=== PATIENT | male | born 1950 | race Caucasian/White ===

== ENCOUNTER → 2021-03-17 | Outpatient (CLI) | payer MEDICARE, BC ==
[~2021-03-17] MED LIST: ASPI81TA45 PO; ATOR-2 PO; LEVO750T26 PO; LISI-167 PO; METO25TA2 PO; TICA90TA PO
== END | disposition home or self-care (01) ==
LOC: STAR 10:43
PROVIDERS: ATTEND Neurological Surgery
DX: Z20.822 Contact with and (suspected) exposure to COVID-19 (principal)
CPT/HCPCS: U0003; U0005

== ENCOUNTER 2021-03-23 06:53 | Inpatient (IN) | payer MEDICARE, BC ==
[~2021-03-23] VITALS: Ht 182.9 cm; Wt 108.4 kg
[~2021-03-23 06:53] MED LIST changes: +BUPIVACAINE/PF 0.5% ONE; +EPINEPHRINE 1 MG/ML, 1ML ONE; +GENTAMICIN 80 MG/2 ML ONE; +HEPARIN 1,000 UNITS/ML, 30ML ONE; +VANCOMYCIN 1,000 MG ONE
[2021-03-23] MEDS ORDERED: CHLORHEXIDINE 15 ML UDC PO ONE (07:30)
[2021-03-23] MEDS ORDERED: LACTATED RINGERS 1,000 ML IV SCH (07:30)
[2021-03-23] MEDS ORDERED: FENTANYL PF 100 MCG/2ML ONE ×2 (10:23→13:19)
[2021-03-23] MEDS ORDERED: CEFAZOLIN 1,000 MG ONE (10:23)
[2021-03-23] MEDS ORDERED: ONDANSETRON 2MG/ML, 2ML ONE (10:23)
[2021-03-23] MEDS ORDERED: ROCURONIUM 10MG/ML,5ML ONE (10:23)
[2021-03-23] MEDS ORDERED: PROPOFOL 10 MG/ML, 20ML ONE (10:23)
[2021-03-23] MEDS ORDERED: MIDAZOLAM 1 MG/ML, 2ML ONE (10:23)
[2021-03-23] MEDS ORDERED: NEOSTIGMINE 1 MG/ML, 10ML ONE (10:23)
[2021-03-23] MEDS ORDERED: DEXAMETHASONE 4 MG/ML, 1ML ONE (10:23)
[2021-03-23] MEDS ORDERED: GLYCOPYRROLATE 0.2MG/1ML, 5ML ONE (10:23)
[2021-03-23] MEDS ORDERED: SUCCINYLCHOLINE 20 MG/ML, 10ML ONE (10:23)
[2021-03-23] MEDS ORDERED: EPHEDRINE 50 MG/ML, 1ML ONE (10:49)
[2021-03-23] MEDS ORDERED: PROMETHAZINE 25 MG/ML, 1ML IVPush PRN (11:00)
[2021-03-23] MEDS ORDERED: HYDROcodone/APAP 7.5-325MG/15ML UDC PO PRN (11:00)
[2021-03-23] MEDS ORDERED: MEPERIDINE/PF 25MG/0.5ML IVPush PRN (11:00)
[2021-03-23] MEDS ORDERED: ONDANSETRON 2MG/ML, 2ML IVPush PRN ×2 (11:00→13:00)
[2021-03-23] MEDS ORDERED: METHOCARBAMOL 1,000 MG in DEXTROSE 5% 100 ML IV PRN (11:00)
[2021-03-23] MEDS ORDERED: HYDROmorphone 1 MG/ML, 1ML INJ IVPush PRN ×2 (11:00→13:00)
[2021-03-23] MEDS ORDERED: OXYcodone 5 MG/5 ML ORAL.SOL UDC PO PRN (11:00)
[2021-03-23] MEDS ORDERED: METHOCARBAMOL 750 MG TABLET PO PRN (13:00)
[2021-03-23] MEDS ORDERED: SENNA/DOCUSATE TABLET PO PRN (13:00)
[2021-03-23] MEDS ORDERED: OXYcodone/APAP 5/325MG TABLET PO PRN (13:00)
[2021-03-23] MEDS ORDERED: BISACODYL 10 MG SUPP PR PRN (13:00)
[2021-03-23] MEDS ORDERED: PHARMACY MAY ADJ FOR RENAL FX MC PRN (13:00)
[2021-03-23] MEDS ORDERED: MAGNESIUM HYDROXIDE 8%, 30ML UDC PO PRN (13:00)
[2021-03-23] MEDS ORDERED: DIPHENHYDRAMINE 50 MG/ML, 1ML IM PRN (13:00)
[2021-03-23] MEDS ORDERED: METHOCARBAMOL 1,000 MG in DEXTROSE 5% 100 ML IV ONE (13:00)
[2021-03-23] MEDS ORDERED: DIPHENHYDRAMINE 50 MG/ML, 1ML IVPush PRN (13:00)
[2021-03-23] MEDS: FENTANYL PF 100 MCG/2ML IV PRN ×2 (13:21→13:53)
[2021-03-23] MEDS ORDERED: OXYcodone 5 MG/5 ML ORAL.SOL UDC ONE (13:48)
[2021-03-23] MEDS: D5%-0.9% NACL+KCL 20MEQ 1,000 ML IV SCH (18:25)
[2021-03-23] MEDS: CEFAZOLIN PMX 1GM/50ML 50 ML IVPB SCH (18:26)
[2021-03-23 18:45] VITALS: BP 123/85
[2021-03-23] MEDS: SODIUM CHLORIDE FLUSH 10ML SYR IVF SCH (21:00)
[2021-03-23 23:45] VITALS: BP 117/71
[2021-03-24 03:25] VITALS: BP 139/75
[2021-03-24] MEDS: CEFAZOLIN PMX 1GM/50ML 50 ML IVPB SCH ×2 (03:33→18:31)
[2021-03-24 05:11] LABS: BASOPHILS % (AUTO) 0 % (0-1); EOSINOPHILS % (AUTO) 0 % (1-7); LYMPHOCYTES % (AUTO) 4 % (22-44); MEAN CORPUSCULAR HEMOGLOBIN 32.8 pg (27.5-34.5); MEAN CORPUSCULAR HGB CONC 33.6 g/dL (33.2-36.2); MEAN PLATELET VOLUME 10.9 fL (7.4-10.4); MONOCYTES % (AUTO) 5 % (2-9); NEUTROPHILS % (AUTO) 91 % (42-75); PLATELET COUNT 134 x10^3/uL (130-400); RED CELL DISTRIBUTION WIDTH 13.9 % (9.4-14.8)
[2021-03-24 05:23] LABS: ANION GAP 6 mmol/L (5-15); CALCIUM 8.6 mg/dL (8.5-10.1); CHLORIDE 109 mmol/L (98-107); CREATININE 0.99 mg/dL (0.7-1.3)
[2021-03-24] MEDS: D5%-0.9% NACL+KCL 20MEQ 1,000 ML IV SCH ×3 (05:50→19:50)
[2021-03-24] MEDS ORDERED: BUPIVACAINE/PF 0.5% ONE (06:35)
[2021-03-24] MEDS ORDERED: VANCOMYCIN 1,000 MG ONE (06:35)
[2021-03-24] MEDS ORDERED: EPINEPHRINE 1 MG/ML, 1ML ONE (06:36)
[2021-03-24 07:03] VITALS: BP 116/77
[2021-03-24] MEDS ORDERED: GENTAMICIN 80 MG/2 ML ONE (08:00)
[2021-03-24] MEDS: METOPROLOL SUCCINATE 25 MG TAB.ER.24H PO SCH (08:25)
[2021-03-24] MEDS: SODIUM CHLORIDE FLUSH 10ML SYR IVF SCH ×2 (08:26→19:57)
[2021-03-24] MEDS: LISINOPRIL 10 MG TABLET PO SCH (08:26)
[2021-03-24] MEDS ORDERED: CHLORHEXIDINE 15 ML UDC ONE (08:47)
[2021-03-24] MEDS ORDERED: CHLORHEXIDINE 15 ML UDC PO ONE ×2 (09:00)
[2021-03-24] MEDS ORDERED: MIDAZOLAM 1 MG/ML, 2ML ONE (10:15)
[2021-03-24] MEDS ORDERED: FENTANYL PF 250 MCG/5ML ONE ×2 (10:16→11:24)
[2021-03-24] MEDS ORDERED: PROPOFOL 10 MG/ML, 20ML ONE (10:29)
[2021-03-24] MEDS ORDERED: ONDANSETRON 2MG/ML, 2ML ONE (10:29)
[2021-03-24] MEDS ORDERED: ROCURONIUM 10 MG/ML,10ML ONE (10:29)
[2021-03-24] MEDS ORDERED: SUCCINYLCHOLINE 20 MG/ML, 10ML ONE (10:29)
[2021-03-24] MEDS ORDERED: CEFAZOLIN 1,000 MG ONE (10:29)
[2021-03-24] MEDS ORDERED: DEXAMETHASONE 4 MG/ML, 1ML ONE (10:50)
[2021-03-24] MEDS ORDERED: VANCOMYCIN 1,000 MG IM ONE (11:11)
[2021-03-24] MEDS ORDERED: DIPHENHYDRAMINE 50 MG/ML, 1ML IVPush PRN ×2 (13:00)
[2021-03-24] MEDS ORDERED: MIDAZOLAM 1 MG/ML, 2ML IV PRN (13:00)
[2021-03-24] MEDS ORDERED: hydrALAzine 20 MG/ML, 1ML IV PRN (13:00)
[2021-03-24] MEDS ORDERED: ALBUTEROL SULFATE 2.5 MG/3 ML NPPB PRN (13:00)
[2021-03-24] MEDS: LABETALOL 5MG/ML 40ML VIAL IVPush SCH ×2 (13:00→19:07)
[2021-03-24] MEDS ORDERED: DIAZEPAM 5 MG/ML, 2ML IVPush PRN (13:00)
[2021-03-24] MEDS ORDERED: EPHEDRINE 50 MG/ML, 1ML IVPush PRN (13:00)
[2021-03-24] MEDS ORDERED: FENTANYL PF 100 MCG/2ML IV PRN (13:00)
[2021-03-24] MEDS ORDERED: ONDANSETRON 2MG/ML, 2ML IVPush PRN (13:00)
[2021-03-24] MEDS ORDERED: LORazepam 2 MG/ML, 1ML IVPush PRN (13:00)
[2021-03-24] MEDS ORDERED: MEPERIDINE/PF 25MG/0.5ML IVPush PRN (13:00)
[2021-03-24] MEDS ORDERED: HYDROmorphone 1 MG/ML, 1ML INJ IVPush PRN (13:00)
[2021-03-24] MEDS ORDERED: PROMETHAZINE 12.5 MG SUPP PR PRN (13:00)
[2021-03-24] MEDS ORDERED: OXYcodone 5 MG/5 ML ORAL.SOL UDC PO PRN (13:00)
[2021-03-24] MEDS ORDERED: PROMETHAZINE 25 MG/ML, 1ML IVPush PRN (13:00)
[2021-03-24] MEDS ORDERED: LABETALOL 5MG/ML, 20ML IV PRN (13:00)
[2021-03-24] MEDS ORDERED: PHARMACY MAY ADJ FOR RENAL FX MC PRN (13:00)
[2021-03-24] MEDS ORDERED: OXYcodone 5 MG/5 ML ORAL.SOL UDC ONE (13:21)
[2021-03-24] MEDS ORDERED: METHOCARBAMOL 1,000 MG in DEXTROSE 5% 100 ML IV ONE (13:30)
[2021-03-24 15:26] VITALS: BP 133/87
[2021-03-24 19:00] VITALS: BP 105/64
[2021-03-24] MEDS ORDERED: METHOCARBAMOL 750 MG in DEXTROSE 5% 100 ML IV PRN (21:00)
[2021-03-25 00:26] VITALS: BP 118/79
[2021-03-25] MEDS: DIPHENHYDRAMINE 50 MG CAPSULE PO PRN ×2 (01:55→21:48)
[2021-03-25] MEDS: LABETALOL 5MG/ML 40ML VIAL IVPush SCH ×3 (03:20→21:00)
[2021-03-25] MEDS: CEFAZOLIN PMX 1GM/50ML 50 ML IVPB SCH (03:20)
[2021-03-25 04:11] VITALS: BP 114/73
[2021-03-25] MEDS: D5%-0.9% NACL+KCL 20MEQ 1,000 ML IV SCH ×3 (04:56→14:32)
[2021-03-25 05:21] LABS: BASOPHILS % (AUTO) 0 % (0-1); EOSINOPHILS % (AUTO) 0 % (1-7); LYMPHOCYTES % (AUTO) 5 % (22-44); MEAN CORPUSCULAR HEMOGLOBIN 32.5 pg (27.5-34.5); MEAN CORPUSCULAR HGB CONC 33.4 g/dL (33.2-36.2); MEAN PLATELET VOLUME 10.9 fL (7.4-10.4); MONOCYTES % (AUTO) 7 % (2-9); NEUTROPHILS % (AUTO) 88 % (42-75); PLATELET COUNT 121 x10^3/uL (130-400); RED BLOOD COUNT 4.15 x10^6/uL (4.38-5.82)
[2021-03-25 05:36] LABS: ALBUMIN 2.8 g/dL (3.4-5.0); ANION GAP 4 mmol/L (5-15); CALCIUM 8.6 mg/dL (8.5-10.1); CHLORIDE 105 mmol/L (98-107)
[2021-03-25 06:25] VITALS: BP 115/75
[2021-03-25] MEDS: METOPROLOL SUCCINATE 25 MG TAB.ER.24H PO SCH (08:07)
[2021-03-25] MEDS: LISINOPRIL 10 MG TABLET PO SCH (08:07)
[2021-03-25] MEDS: SODIUM CHLORIDE FLUSH 10ML SYR IVF SCH ×2 (08:08→21:50)
[2021-03-25] MEDS: ENOXAPARIN 40 MG/0.4 ML SQ SCH (09:29)
[2021-03-25] MEDS: HYDROcodone/APAP 5/325 TABLET PO PRN (09:29)
[2021-03-25 14:20] VITALS: BP 114/76
[2021-03-25 19:20] VITALS: BP 127/86
[2021-03-26] MEDS: D5%-0.9% NACL+KCL 20MEQ 1,000 ML IV SCH ×3 (01:15→16:00)
[2021-03-26 02:00] VITALS: BP 121/78
[2021-03-26] MEDS: LABETALOL 5MG/ML 40ML VIAL IVPush SCH ×3 (05:00→21:00)
[2021-03-26 05:45] LABS: BASOPHILS % (AUTO) 0 % (0-1); EOSINOPHILS % (AUTO) 1 % (1-7); LYMPHOCYTES % (AUTO) 10 % (22-44); MEAN CORPUSCULAR HEMOGLOBIN 33.1 pg (27.5-34.5); MEAN CORPUSCULAR HGB CONC 34.5 g/dL (33.2-36.2); MEAN PLATELET VOLUME 11.1 fL (7.4-10.4); MONOCYTES % (AUTO) 9 % (2-9); NEUTROPHILS % (AUTO) 81 % (42-75); PLATELET COUNT 104 x10^3/uL (130-400); RED BLOOD COUNT 3.98 x10^6/uL (4.38-5.82); RED CELL DISTRIBUTION WIDTH 14.1 % (9.4-14.8)
[2021-03-26] MEDS ORDERED: BUPIVACAINE/PF 0.5% ONE (06:45)
[2021-03-26] MEDS ORDERED: VANCOMYCIN 1,000 MG ONE (06:46)
[2021-03-26] MEDS ORDERED: THROMBIN 20,000 UNIT VIAL TP ONE (06:46)
[2021-03-26] MEDS ORDERED: EPINEPHRINE 1 MG/ML, 1ML ONE (06:46)
[2021-03-26] MEDS: ENOXAPARIN 40 MG/0.4 ML SQ SCH (07:32)
[2021-03-26 07:40] VITALS: BP 123/81
[2021-03-26] MEDS: METOPROLOL SUCCINATE 25 MG TAB.ER.24H PO SCH (07:47)
[2021-03-26] MEDS: LISINOPRIL 10 MG TABLET PO SCH (07:47)
[2021-03-26] MEDS: SODIUM CHLORIDE FLUSH 10ML SYR IVF SCH ×2 (07:52→21:36)
[2021-03-26] MEDS ORDERED: CHLORHEXIDINE 15 ML UDC ONE (08:42)
[2021-03-26] MEDS ORDERED: FENTANYL PF 250 MCG/5ML ONE (08:42)
[2021-03-26] MEDS ORDERED: MIDAZOLAM 1 MG/ML, 2ML ONE (08:42)
[2021-03-26] MEDS ORDERED: ROCURONIUM 10MG/ML,5ML ONE ×2 (08:43→10:48)
[2021-03-26] MEDS ORDERED: PROPOFOL 10 MG/ML, 20ML ONE (08:43)
[2021-03-26] MEDS ORDERED: DEXAMETHASONE 4 MG/ML, 1ML ONE (08:44)
[2021-03-26] MEDS ORDERED: ONDANSETRON 2MG/ML, 2ML IVPush PRN ×2 (09:00→12:00)
[2021-03-26] MEDS ORDERED: CHLORHEXIDINE 15 ML UDC PO ONE (09:00)
[2021-03-26] MEDS ORDERED: MEPERIDINE/PF 25MG/0.5ML IVPush PRN (09:00)
[2021-03-26] MEDS ORDERED: OXYcodone 5 MG/5 ML ORAL.SOL UDC PO PRN (09:00)
[2021-03-26] MEDS ORDERED: PROMETHAZINE 25 MG/ML, 1ML IVPush PRN (09:00)
[2021-03-26] MEDS ORDERED: ACETAMINOPHEN 325 MG TABLET PO PRN (09:00)
[2021-03-26] MEDS ORDERED: HYDROmorphone 1 MG/ML, 1ML INJ IVPush PRN (09:00)
[2021-03-26] MEDS ORDERED: hydrALAzine 20 MG/ML, 1ML IV PRN (09:00)
[2021-03-26] MEDS ORDERED: LABETALOL 5MG/ML, 20ML IV PRN (09:00)
[2021-03-26] MEDS ORDERED: CEFAZOLIN 1,000 MG ONE ×2 (09:29)
[2021-03-26] MEDS ORDERED: ONDANSETRON 2MG/ML, 2ML ONE (11:18)
[2021-03-26] MEDS ORDERED: SENNA/DOCUSATE TABLET PO PRN (12:00)
[2021-03-26] MEDS ORDERED: BISACODYL 10 MG SUPP PR PRN (12:00)
[2021-03-26] MEDS ORDERED: METHOCARBAMOL 1,000 MG in DEXTROSE 5% 100 ML IV ONE (12:00)
[2021-03-26] MEDS ORDERED: ENOXAPARIN 40 MG/0.4 ML SQ SCH (12:00)
[2021-03-26] MEDS ORDERED: PHARMACY MAY ADJ FOR RENAL FX MC PRN (12:00)
[2021-03-26] MEDS ORDERED: D5%-0.9% NACL+KCL 20MEQ 1,000 ML IV SCH (12:00)
[2021-03-26] MEDS ORDERED: DIPHENHYDRAMINE 50 MG/ML, 1ML IM PRN ×2 (12:00→12:30)
[2021-03-26] MEDS ORDERED: LABETALOL 5MG/ML, 20ML IVPush PRN (12:00)
[2021-03-26] MEDS ORDERED: DIPHENHYDRAMINE 50 MG CAPSULE PO PRN (12:00)
[2021-03-26] MEDS ORDERED: MAGNESIUM HYDROXIDE 8%, 30ML UDC PO PRN (12:00)
[2021-03-26] MEDS ORDERED: METHOCARBAMOL 750 MG TABLET PO PRN (12:00)
[2021-03-26] MEDS ORDERED: DIPHENHYDRAMINE 50 MG/ML, 1ML IVPush PRN (12:00)
[2021-03-26] MEDS ORDERED: FENTANYL PF 100 MCG/2ML ONE (12:09)
[2021-03-26] MEDS: FENTANYL PF 100 MCG/2ML IV PRN ×2 (12:12→12:29)
[2021-03-26] MEDS ORDERED: OXYcodone 5 MG/5 ML ORAL.SOL UDC ONE (12:31)
[2021-03-26] MEDS ORDERED: HYDROmorphone 1 MG/ML, 1ML INJ ONE (12:31)
[2021-03-26 13:35] VITALS: BP 113/78
[2021-03-26] MEDS: CEFAZOLIN PMX 1GM/50ML 50 ML IVPB SCH (18:39)
[2021-03-26] MEDS: HYDROcodone/APAP 5/325 TABLET PO PRN ×2 (18:46→22:43)
[2021-03-26 20:17] VITALS: BP 125/81
[2021-03-26] MEDS: METHOCARBAMOL 750 MG TABLET PO SCH (21:36)
[2021-03-27 00:23] VITALS: BP 100/66
[2021-03-27] MEDS: CEFAZOLIN PMX 1GM/50ML 50 ML IVPB SCH (01:49)
[2021-03-27] MEDS: D5%-0.9% NACL+KCL 20MEQ 1,000 ML IV SCH ×4 (01:50→22:00)
[2021-03-27 04:16] VITALS: BP 97/68
[2021-03-27] MEDS: LABETALOL 5MG/ML 40ML VIAL IVPush SCH ×3 (05:00→21:00)
[2021-03-27 06:03] LABS: CHLORIDE 106 mmol/L (98-107)
[2021-03-27 06:11] LABS: ALBUMIN 2.5 g/dL (3.4-5.0); ANION GAP 5 mmol/L (5-15); CALCIUM 8.6 mg/dL (8.5-10.1); CREATININE 0.75 mg/dL (0.7-1.3)
[2021-03-27] MEDS: HYDROcodone/APAP 5/325 TABLET PO PRN ×4 (06:19→22:53)
[2021-03-27] MEDS: METHOCARBAMOL 750 MG TABLET PO SCH ×3 (06:19→22:52)
[2021-03-27 06:31] LABS: BASOPHILS % (AUTO) 0 % (0-1); EOSINOPHILS % (AUTO) 0 % (1-7); LYMPHOCYTES % (AUTO) 5 % (22-44); MEAN PLATELET VOLUME 11.2 fL (7.4-10.4); MONOCYTES % (AUTO) 7 % (2-9); NEUTROPHILS % (AUTO) 88 % (42-75); PLATELET COUNT 126 x10^3/uL (130-400); RED BLOOD COUNT 3.78 x10^6/uL (4.38-5.82); RED CELL DISTRIBUTION WIDTH 13.7 % (9.4-14.8)
[2021-03-27 06:33] VITALS: BP 103/73
[2021-03-27] MEDS: LISINOPRIL 10 MG TABLET PO SCH (09:00)
[2021-03-27] MEDS: SODIUM CHLORIDE FLUSH 10ML SYR IVF SCH ×2 (09:30→22:53)
[2021-03-27] MEDS: METOPROLOL SUCCINATE 25 MG TAB.ER.24H PO SCH (09:30)
[2021-03-27] MEDS: ENOXAPARIN 40 MG/0.4 ML SQ SCH (09:30)
[2021-03-27 14:30] VITALS: BP 101/68
[2021-03-27 20:02] VITALS: BP 103/68
[2021-03-28 01:18] VITALS: BP 119/80
[2021-03-28] MEDS: HYDROcodone/APAP 5/325 TABLET PO PRN ×4 (04:51→21:23)
[2021-03-28] MEDS: D5%-0.9% NACL+KCL 20MEQ 1,000 ML IV SCH ×3 (05:00→17:56)
[2021-03-28] MEDS: LABETALOL 5MG/ML 40ML VIAL IVPush SCH ×3 (05:00→19:32)
[2021-03-28 05:01] LABS: BASOPHILS % (AUTO) 0 % (0-1); EOSINOPHILS % (AUTO) 1 % (1-7); LYMPHOCYTES % (AUTO) 13 % (22-44); MEAN CORPUSCULAR HEMOGLOBIN 32.8 pg (27.5-34.5); MEAN CORPUSCULAR HGB CONC 33.8 g/dL (33.2-36.2); MEAN PLATELET VOLUME 10.8 fL (7.4-10.4); MONOCYTES % (AUTO) 9 % (2-9); NEUTROPHILS % (AUTO) 77 % (42-75); PLATELET COUNT 133 x10^3/uL (130-400); RED CELL DISTRIBUTION WIDTH 13.8 % (9.4-14.8)
[2021-03-28] MEDS: METHOCARBAMOL 750 MG TABLET PO SCH ×3 (06:16→21:23)
[2021-03-28 07:25] VITALS: BP 119/80
[2021-03-28] MEDS: LISINOPRIL 10 MG TABLET PO SCH (08:58)
[2021-03-28] MEDS: SODIUM CHLORIDE FLUSH 10ML SYR IVF SCH ×2 (08:59→21:22)
[2021-03-28] MEDS: METOPROLOL SUCCINATE 25 MG TAB.ER.24H PO SCH (08:59)
[2021-03-28] MEDS ORDERED: MAGNESIUM CITRATE 300ML ORAL SOL PO ONE (09:30)
[2021-03-28] MEDS: ENOXAPARIN 40 MG/0.4 ML SQ SCH (09:51)
[2021-03-28] MEDS ORDERED: MAGNESIUM CITRATE 300ML ORAL SOL PO PRN (11:30)
[2021-03-28 14:06] VITALS: BP 104/69
[2021-03-28 19:42] VITALS: BP 109/75
[2021-03-29] MEDS: D5%-0.9% NACL+KCL 20MEQ 1,000 ML IV SCH ×4 (01:00→20:29)
[2021-03-29] MEDS: HYDROcodone/APAP 5/325 TABLET PO PRN ×5 (01:42→21:06)
[2021-03-29 01:44] VITALS: BP 118/74
[2021-03-29] MEDS: LABETALOL 5MG/ML 40ML VIAL IVPush SCH ×3 (04:27→20:30)
[2021-03-29 04:58] LABS: BASOPHILS % (AUTO) 0 % (0-1); EOSINOPHILS % (AUTO) 1 % (1-7); LYMPHOCYTES % (AUTO) 11 % (22-44); MEAN CORPUSCULAR HEMOGLOBIN 33.5 pg (27.5-34.5); MEAN CORPUSCULAR HGB CONC 34.8 g/dL (33.2-36.2); MEAN PLATELET VOLUME 10.4 fL (7.4-10.4); MONOCYTES % (AUTO) 10 % (2-9); NEUTROPHILS % (AUTO) 78 % (42-75); PLATELET COUNT 139 x10^3/uL (130-400); RED BLOOD COUNT 3.89 x10^6/uL (4.38-5.82)
[2021-03-29] MEDS: METHOCARBAMOL 750 MG TABLET PO SCH ×3 (05:42→16:37)
[2021-03-29 07:55] VITALS: BP 118/77
[2021-03-29] MEDS: SODIUM CHLORIDE FLUSH 10ML SYR IVF SCH ×2 (09:42→20:30)
[2021-03-29] MEDS: METOPROLOL SUCCINATE 25 MG TAB.ER.24H PO SCH (09:43)
[2021-03-29] MEDS: LISINOPRIL 10 MG TABLET PO SCH (09:43)
[2021-03-29] MEDS: ENOXAPARIN 40 MG/0.4 ML SQ SCH (09:45)
[2021-03-29 13:01] VITALS: BP 112/74
[2021-03-29] MEDS ORDERED: HYDR-3248 PO (16:04)
[2021-03-29 19:04] VITALS: BP 111/77
[2021-03-30 00:45] VITALS: BP 121/84
[2021-03-30] MEDS: METHOCARBAMOL 750 MG TABLET PO SCH ×3 (00:47→09:32)
[2021-03-30] MEDS: HYDROcodone/APAP 5/325 TABLET PO PRN ×3 (00:48→12:22)
[2021-03-30] MEDS: LABETALOL 5MG/ML 40ML VIAL IVPush SCH (03:52)
[2021-03-30 05:07] LABS: BASOPHILS % (AUTO) 0 % (0-1); EOSINOPHILS % (AUTO) 2 % (1-7); LYMPHOCYTES % (AUTO) 12 % (22-44); MEAN CORPUSCULAR HEMOGLOBIN 32.7 pg (27.5-34.5); MEAN CORPUSCULAR HGB CONC 33.5 g/dL (33.2-36.2); MEAN PLATELET VOLUME 10.2 fL (7.4-10.4); MONOCYTES % (AUTO) 8 % (2-9); NEUTROPHILS % (AUTO) 78 % (42-75); PLATELET COUNT 170 x10^3/uL (130-400); RED BLOOD COUNT 4.04 x10^6/uL (4.38-5.82); RED CELL DISTRIBUTION WIDTH 13.8 % (9.4-14.8)
[2021-03-30 08:00] VITALS: BP 118/76
[2021-03-30] MEDS: LISINOPRIL 10 MG TABLET PO SCH (09:32)
[2021-03-30] MEDS: METOPROLOL SUCCINATE 25 MG TAB.ER.24H PO SCH (09:32)
[2021-03-30] MEDS: ENOXAPARIN 40 MG/0.4 ML SQ SCH (09:33)
[2021-03-30] MEDS: D5%-0.9% NACL+KCL 20MEQ 1,000 ML IV SCH ×2 (10:00)
[2021-03-30 12:12] VITALS: BP 120/70
== END 2021-03-30 13:33 | DRG 454 ==
LOC: ORIP 06:53 → 4NE 15:06
PROVIDERS: ADMIT Neurological Surgery; ATTEND Neurological Surgery
PROC: 0SB20ZZ Excision of Lumbar Vertebral Disc, Open Approach (ICD-10-PCS; 2021-03-23)
PROC: 0SG00A0 Fusion of Lumbar Vertebral Joint with Interbody Fusion Device, Anterior Approach, Anterior Column, Open Approach (ICD-10-PCS; principal; 2021-03-23 09:30)
PROC: 0ST20ZZ Resection of Lumbar Vertebral Disc, Open Approach (ICD-10-PCS; 2021-03-24)
PROC: 0SG10A0 Fusion of 2 or more Lumbar Vertebral Joints with Interbody Fusion Device, Anterior Approach, Anterior Column, Open Approach (ICD-10-PCS; 2021-03-24)
PROC: 0SG1071 Fusion of 2 or more Lumbar Vertebral Joints with Autologous Tissue Substitute, Posterior Approach, Posterior Column, Open Approach (ICD-10-PCS; 2021-03-26)
PROC: 01NB0ZZ Release Lumbar Nerve, Open Approach (ICD-10-PCS; 2021-03-26)
PROC: 8E0W0CZ Robotic Assisted Procedure of Trunk Region, Open Approach (ICD-10-PCS; 2021-03-26)
DX: M48.062 Spinal stenosis, lumbar region with neurogenic claudication (principal); R71.0 Precipitous drop in hematocrit; M47.26 Other spondylosis with radiculopathy, lumbar region; M41.86 Other forms of scoliosis, lumbar region; M43.16 Spondylolisthesis, lumbar region; M51.16 Intervertebral disc disorders with radiculopathy, lumbar region; Z79.899 Other long term (current) drug therapy; Z88.8 Allergy status to other drugs, medicaments and biological substances
CPT/HCPCS: 36415; 72100; 72131; 74018; 80048; 82040; 85025; 86850; 86900; C1713; C1776; G0378; J0171; J0690; J1100; J1644; J1650; J2250; J2405; J2704; J2710; J3010; J3370; C1762; C1769; C1889; J0330; J1580; J2800; J3480; J7120